=== PATIENT | female | born 1960 | race Caucasian/White ===

== ENCOUNTER → 2016-06-24 | Outpatient (CLI) | payer MEDICARE, OTHER | LOC: MAMO 06-13 14:00 | DX: Z12.31 Encounter for screening mammogram for malignant neoplasm of breast (principal) | CPT/HCPCS: G0202 ==

== ENCOUNTER 2020-03-03 09:37 | Emergency (ER) | payer MEDICARE, OTHER ==
[~2020-03-03 09:37] MED LIST: BACTRIM DS TAB1 EACH PO
[2020-03-03 10:41] LABS: HEMOGLOBIN 12.2 gm/dl (12.3-15.3); RED BLOOD COUNT 3.8 M/UL (4.00-5.10); WHITE BLOOD COUNT 6.7 K/UL (4.5-11.0)
[2020-03-03 11:00] LABS: BUN/CREATININE RATIO 29 (0-10)
[2020-03-03] MEDS ORDERED: MIRALAX17 GM PO (11:37)
[2020-07-17] MEDS ORDERED: AMANTADINE100 M1 PO (07:14)
[2020-07-17] MEDS ORDERED: CALCIUM 600 +1 EAC3 PO (07:15)
[2020-07-17] MEDS ORDERED: CARBIDOPA-LEVO1 EAC3 PO (07:15)
[2020-07-17] MEDS ORDERED: LASIX20 MG PO (07:16)
[2020-07-17] MEDS ORDERED: MAGNESIUM250 MG PO (07:16)
[2020-07-17] MEDS ORDERED: DUOPA 4.63 MG-100 ML MC (07:16)
[2020-07-17] MEDS ORDERED: CENTRUM SILVER1 EAC1 PO (07:16)
[2020-07-17] MEDS ORDERED: BIOTIN2500 MCG PO (07:17)
[2020-07-17] MEDS ORDERED: ULTRAM50 MG PO (07:18)
[2020-07-17] MEDS ORDERED: VALSARTAN160 MG PO (07:18)
[2020-07-17] MEDS ORDERED: PRAMIPEXOLE DIHY1 MG PO (07:18)
[2020-07-17] MEDS ORDERED: ZYRTEC10 MG PO (07:19)
[2020-07-17] MEDS ORDERED: VITAMIN D21250 MCG PO (07:19)
== END 2020-03-03 12:05 | disposition home or self-care (01) ==
LOC: ER1 09:37
PROVIDERS: Family Medicine
DX: K59.00 Constipation, unspecified (principal); G20 Parkinson's disease; I10 Essential (primary) hypertension; Z93.4 Other artificial openings of gastrointestinal tract status; Z09 Encounter for follow-up examination after completed treatment for conditions other than malignant neoplasm; Z87.39 Personal history of other diseases of the musculoskeletal system and connective tissue; Z87.81 Personal history of (healed) traumatic fracture; Z79.899 Other long term (current) drug therapy
CPT/HCPCS: 74018; 80053; 83605; 83690; 85025; 99283

== ENCOUNTER → 2020-07-17 | Day surgery (SDC) | payer MEDICARE, OTHER ==
[~2020-07-17] MED LIST changes: +AMANTADINE100 M1 PO; +BIOTIN2500 MCG PO; +CALCIUM 600 +1 EAC3 PO; +CARBIDOPA-LEVO1 EAC3 PO; +CENTRUM SILVER1 EAC1 PO; +DUOPA 4.63 MG-100 ML MC; +LASIX20 MG PO; +MAGNESIUM250 MG PO; +MIRALAX17 GM PO; +PRAMIPEXOLE DIHY1 MG PO; +ULTRAM50 MG PO; +VALSARTAN160 MG PO; +VITAMIN D21250 MCG PO; +ZYRTEC10 MG PO
== END | disposition home or self-care (01) ==
LOC: OR 06:27
DX: Z12.11 Encounter for screening for malignant neoplasm of colon (principal); G20 Parkinson's disease; I10 Essential (primary) hypertension; E78.5 Hyperlipidemia, unspecified; M19.90 Unspecified osteoarthritis, unspecified site; I73.9 Peripheral vascular disease, unspecified; Z88.8 Allergy status to other drugs, medicaments and biological substances; Z79.891 Long term (current) use of opiate analgesic; Z79.899 Other long term (current) drug therapy
CPT/HCPCS: J2704; J7030

== ENCOUNTER → 2020-09-26 | Outpatient (CLI) | payer MEDICARE, OTHER ==
[~2020-09-26] VITALS: Ht 147.3 cm; Wt 88.5 kg
== END ==
LOC: OPSV 09-24 12:00
DX: M81.0 Age-related osteoporosis without current pathological fracture (principal)
CPT/HCPCS: 96365; J3489

== ENCOUNTER → 2020-10-01 | Outpatient (CLI) | payer MEDICARE, OTHER | LOC: MAMO 13:30 | DX: Z12.31 Encounter for screening mammogram for malignant neoplasm of breast (principal) | CPT/HCPCS: 77063; 77067 ==

== ENCOUNTER → 2020-11-27 | Outpatient (CLI) | payer MEDICARE, OTHER | LOC: KOH-I 14:26 | DX: M47.26 Other spondylosis with radiculopathy, lumbar region (principal) | CPT/HCPCS: 72100 ==

== ENCOUNTER 2021-01-27 06:18 | Emergency (ER) | payer MEDICARE, OTHER ==
[2021-01-27 08:41] LABS: HEMOGLOBIN 14.2 gm/dl (12.3-15.3); RED BLOOD COUNT 4.77 M/UL (4.00-5.10); WHITE BLOOD COUNT 5.2 K/UL (4.5-11.0)
[2021-01-27 09:04] LABS: BUN/CREATININE RATIO 64 (0-10)
[2021-01-27] MEDS ORDERED: ZOFRAN4 MG PO (11:37)
== END 2021-01-27 11:45 | disposition home or self-care (01) ==
LOC: ER1 06:18
PROVIDERS: Physician Assistant
DX: R11.2 Nausea with vomiting, unspecified (principal); K21.9 Gastro-esophageal reflux disease without esophagitis; I10 Essential (primary) hypertension
CPT/HCPCS: 80053; 81001; 82550; 82553; 83874; 84484; 85025; 93005; 96374; 99284; J2405; J7030

== ENCOUNTER → 2021-10-02 | Outpatient (CLI) | payer MEDICARE, OTHER ==
[~2021-10-02] VITALS: Ht 147.3 cm; Wt 88.5 kg
[~2021-10-02] MED LIST changes: +ZOFRAN4 MG PO
== END ==
LOC: OPSV 14:00
DX: M81.0 Age-related osteoporosis without current pathological fracture (principal)
CPT/HCPCS: 96365; J3489